=== PATIENT | male | born 1990 | race Caucasian/White ===

== ENCOUNTER 2022-04-10 13:44 | Emergency (ER) | payer MEDICAID, OTHER ==
[2022-04-10 13:50] VITALS: BP 140/70
--- NOTE | 2022-04-10 14:06 | ED Physician Documentation ---
History of Present Illness - Stated complaint Stated Complaint: HEAD INJ/BLEEDING - Chief complaint Chief Complaint: Trauma Hd/Nk - History obtained from History obtained from: Patient - History of Present Illness Timing: Today Pain level max: 4 Pain level now: 4 - Additonal information Additional information: 31-year-old male presents to the emergency department after a grandfather clock tipped and struck him on the head today at work. 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 Tetanus up-to-date. No loss of consciousness. Mild headache. No vomiting. No altered mental status. No seizure activity. No neck or back pain. No numbness or tingling. Patient is not anticoagulated. Review of Systems Constitutional: denies: Fever, Chills Nose: denies: Rhinorrhea / runny nose, Congestion Respiratory: denies: Cough GI: denies: Nausea, Vomiting, Diarrhea Skin: denies: Rash Musculoskeletal: denies: Neck pain, Back pain Neurologic: denies: Headache PD PAST MEDICAL HISTORY - Past Medical History Past Medical History: No - Past Surgical History Past Surgical History: No - Present Medications Home Medications: Ambulatory Orders Medication Instructions Recorded Confirmed No Known Home Medications 08/13/12 04/10/22 - Allergies Allergies/Adverse Reactions: Allergies Allergy/AdvReac Type Severity Reaction Status Date / Time No Known Drug Allergies Allergy Verified 04/10/22 13:48 - Living Situation Living Situation: reports: With family Living Arrangement: reports: At home - Social History Does the pt smoke?: No Smoking Status: Never smoker Does the pt drink ETOH?: No Does the pt have substance abuse?: No - Immunizations Immunizations are current?: No Immunizations: TDAP >10years/unknown PD ED PE NORMAL - Vitals Vital signs reviewed: Yes - General General: Alert and oriented X 3, No acute distress - HEENT HEENT: PERRL, EOMI, Moist mucous membranes, Other (2 cm curvilinear laceration to the top of the scalp. No palpable skull fractures. No active bleeding. No hematomas. 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, No motor deficit, No sensory deficit, Normal speech - Psych Psych: Normal mood, Normal affect Results - Vitals Vitals: Vital Signs - 24 hr 04/10/22 13:48 Temperature 36.6 C Heart Rate 80 Respiratory 16 Rate Blood Pressure 140/70 H O2 Saturation 99 Oxygen O2 Source Room air Procedures - Laceration (location) scalp Length in cm: 2 Wound type: Curved, Into subcut fat, Clean Neurovascular status: Sensory intact, Motor intact, Vascular intact Wound preparation: Irrigated copiously NS Skin layer closure: Anny Other: Patient tolerated well, No complications, Neurovascular intact, Tetanus UTD PD Medical Decision Making - ED course Complexity details: considered differential, d/w patient ED course: Laceration repaired with anny. Tolerated well. Tetanus up-to-date. No indication for head CT. Head injury instructions given at bedside. GCS 15. No neck tenderness or pain. No neurological deficits. Patient counseled regarding signs and symptoms for which I believe and urgent re-evaluation would be necessary. Patient with good understanding of and agreement to plan and is comfortable going home at this time This document was made in part using voice recognition software. While efforts are made to proofread this document, sound alike and grammatical errors may occur. Departure - Departure Disposition: 01 Home, Self Care Clinical Impression: Scalp laceration Qualifiers: Encounter type: initial encounter Qualified Code(s): S01.01XA - Laceration without foreign body of scalp, initial encounter Condition: Good Instructions: ED Head Injury Closed, ED Laceration Scalp Stitch Or Stap Follow-Up: your,doctor in 10-14 days for staple removal [Other] Walk In [facility] [Provider Group] Comments: Please follow-up with your doctor for further care. You should have the anny removed in about 10 to 14 days. Please return for worsening headaches, vomiting, changes in mental status, seizures or any other new or worrisome symptoms. Keep the wound clean.
== END 2022-04-10 14:10 | disposition home or self-care (01) ==
LOC: ED 13:44
DX: S01.01XA Laceration without foreign body of scalp, initial encounter (principal); W20.8XXA Other cause of strike by thrown, projected or falling object, initial encounter; Y93.E6 Activity, residential relocation; Y92.89 Other specified places as the place of occurrence of the external cause; Y99.0 Civilian activity done for income or pay
CPT/HCPCS: 12001; 99281